=== PATIENT | male | born 1965 | race Caucasian/White ===

== ENCOUNTER → 2017-02-19 | Day surgery (SDC) | payer BC ==
[~2017-02-19] MED LIST: LIPITOR40 MG PO; LORCET HD 10-31 EACH PO; PANTOPRAZOLE SO40 MG PO; XANAX1 MG PO; ZANTAC150 MG PO
--- NOTE | ~2017-02-19 | OR ---
Unit #: [id number] #: [id number] Patient: AUGUSTO LIRIANO JR [id number] [address] [place], [place] [address] [id number] MR#: [id number] NAME: AUGUSTO LIRIANO JR ROOM: Date of Procedure: 02/19/2017 Admission Date: 02/19/2017 Surgeon: Marlo Stone M.D. : 1965 Attending Physician: Marlo Stone M.D. Primary Care Physician: Jatinder Hartley M.D. OPERATIVE REPORT PROCEDURES PERFORMED Esophagogastroduodenoscopy with biopsy and colonoscopy with snare polypectomy. INDICATIONS FOR PROCEDURE Average risk for colorectal cancer, also with chronic GERD symptoms and intermittent dysphagia, undergoing evaluation with upper endoscopy and colonoscopy. MEDICATIONS Monitored anesthesia. POSTOPERATIVE FINDINGS 1. Normal esophagus. 2. Mild gastritis. Biopsies taken. 3. Normal duodenum and distal duodenum. 4. Colonoscopy completed to cecum. Prep was good. 5. Polyp, sigmoid colon, 6 mm, snared and sent for histopathology. The rest of the colon exam was normal. PLAN Follow up on the pathology report. If adenomatous, repeat colonoscopy in 5 years. Continue PPI therapy. DESCRIPTION OF PROCEDURE The patient was explained of the procedure, risks, and benefits along with risks and benefits of anesthesia. He was brought to the endoscopy room. Propofol anesthesia was given. Bite block was placed. The scope was passed down the mouth into the esophagus, stomach, duodenum, and distal duodenum. Findings as described. Biopsies taken. Gently, I pulled the scope out of the patient's mouth. He tolerated it well. At this time, he was turned around and repositioned for colonoscopy. Rectal exam was done, which was normal. Colonoscope was lubricated, passed up the rectum, advanced under direct vision all the way to the cecum. Cecum was identified by ileocecal valve and appendiceal orifice. I then started to pull the scope out carefully looking. Prep was good. Polyp seen in sigmoid colon was snared and sent for histopathology. I retroflexed in the rectum to look at perianal area, which was unremarkable. The scope was gently pulled out. He tolerated it well. Unit #: [id number] #: [id number] Patient: AUGUSTO LIRIANO JR Dictated by... Errol Schmidt/alta TD: 02/19/2017 14:29 JOB #: [id number] CC: Jatinder Hartley M.D. OPERATIVE REPORT Page 1 of 1 X Marlo Stone MD X PROCEDURE OPERATIVE NOTE
== END | disposition home or self-care (01) ==
LOC: COPS 11:21
DX: Z12.11 Encounter for screening for malignant neoplasm of colon (principal); K63.5 Polyp of colon; K29.50 Unspecified chronic gastritis without bleeding; K21.9 Gastro-esophageal reflux disease without esophagitis; E78.5 Hyperlipidemia, unspecified; F41.9 Anxiety disorder, unspecified; Z79.899 Other long term (current) drug therapy
CPT/HCPCS: 88305; 88312; J2250